=== PATIENT | male | born 2000 | race Two or more races ===

== ENCOUNTER 2024-11-20 14:31 | Emergency (ER) | payer OTHER ==
[~2024-11-20] VITALS: Ht 177.8 cm; Wt 65.8 kg
[2024-11-20] MEDS ORDERED: MECLIZINE HCL 25 MG TABLET PO STA (17:30)
[2024-11-20] MEDS ORDERED: MECLIZINE HCL 25 MG TABLET PO ONE (17:38)
== END 2024-11-20 19:12 | disposition home or self-care (01) ==
LOC: ER 14:50
DX: H81.10 Benign paroxysmal vertigo, unspecified ear (principal)